=== PATIENT | male | born 1935 | race Caucasian/White ===

== ENCOUNTER 2019-03-10 17:09 | Inpatient (IN) | payer MEDICARE, BC ==
[2019-03-10 18:06] LABS: AADO2 Arterial 47.5 mmHg (7.0-24.0); Allen Test ACCEPTAB; Arterial Base Excess -0.1 mmol/L (-3.0-3); Arterial Blood Gas Oxygen Sat 91.9 mmHG (95.0-100.0); Arterial COHb 0.7 % (0.0-3.0); Arterial HCO3 23.2 mmol/L (22.0-26.0); Arterial MetHb 0.3 % (0.0-1.5); Arterial pCO2 33.9 mmhg (35-45); MODE ROOM AIR; Site Right Radial
[2019-03-10 18:08] LABS: ADD MAN DIFF? NO
[2019-03-10 18:18] LABS: BASOPHIL # 0.1 10^3/ul (0.0-0.1); BASOPHILS % 0.5 % (0.0-2.0); EOSINOPHILS # 0.2 10^3/ul (0.0-0.5); HEMATOCRIT 38.8 % (42.0-52.0); HEMOGLOBIN 12.7 g/dl (14.0-18.0); LYMPHOCYTES # 0.8 10^3/ul (0.8-2.9); LYMPHOCYTES % 7.3 % (15.0-51.0); MEAN CORPUSCULAR HEMOGLOBIN 31.5 pg (29.0-33.0); MEAN CORPUSCULAR HGB CONC 32.7 g/dl (32.0-37.0); MEAN CORPUSCULAR VOLUME 96.3 fl (82.0-101.0); MEAN PLATELET VOLUME 10.7 fl (7.4-10.4); MONOCYTE # 1.1 10^3/ul (0.3-0.9); MONOCYTES % 10.6 % (0.0-11.0); NEUTROPHIL # 8.1 10^3/ul (1.6-7.5); NEUTROPHILS % 78.9 % (39.0-77.0); PLATELET COUNT 235 10^3/UL (140-415); RED BLOOD COUNT 4.03 10^6/ul (4.70-6.10); RED CELL DISTRIBUTION WIDTH 13.4 % (11.5-14.5)
[2019-03-10 18:18] LABS: WHITE BLOOD COUNT 10.3 10^3/ul (4.8-10.8)
[2019-03-10 18:34] LABS: ADD UMIC YES; UR ASCORBIC ACID 40 mg/dL (NEGATIVE); UR BILIRUBIN (Dip) NEGATIVE (NEGATIVE); UR BLOOD (Dip) 1+ mg/dL (NEGATIVE); UR CLARITY SLIGHTLY CLOUDY (CLEAR); UR COLOR AMBER (YELLOW); UR GLUCOSE (Dip) NEGATIVE (NEGATIVE); UR KETONES (Dip) NEGATIVE (NEGATIVE); UR LEUKOCYTE ESTERASE (Dip) NEGATIVE Leu/ul (NEGATIVE); UR MUCUS MANY /HPF (NONE SEEN); UR NITRITE (Dip) NEGATIVE (NEGATIVE); UR RBC 17 /HPF (0-5); UR SPECIFIC GRAVITY (Dip) 1.027 (1.003-1.030); UR TOTAL PROTEIN (Dip) 2+ mg/dl (NEGATIVE); UR UROBILINOGEN (Dip) 2+ mg/dL (NEGATIVE); UR WBC 5 /HPF (0-5)
[2019-03-10 18:37] LABS: INR 0.98; PROTIME 13.1 Sec (11.9-14.9)
[2019-03-10 18:38] LABS: ALANINE AMINOTRANSFERASE 24 IU/L (13-69); ALBUMIN 3.7 g/dl (3.3-4.9); ALBUMIN/GLOBULIN RATIO 0.78; ALKALINE PHOSPHATASE 131 IU/L (42-121); ANION GAP 8 (5-13); ASPARTATE AMINO TRANSFERASE 23 IU/L (15-46); BILIRUBIN,INDIRECT 1.1 mg/dl (0-1.1); BILIRUBIN,TOTAL 1.1 mg/dl (0.2-1.3); BLOOD UREA NITROGEN 19 mg/dl (7-20); CALCIUM 8.6 mg/dl (8.4-10.2); CARBON DIOXIDE 29 mmol/L (21-31); CHLORIDE 104 mmol/L (97-110); CREATININE 0.94 mg/dl (0.61-1.24); GLUCOSE 136 mg/dl (70-220); PARTIAL THROMBOPLASTIN TIME 26.9 Sec (23.0-35.0); POTASSIUM 3.4 mmol/L (3.5-5.1); SODIUM 141 mmol/L (135-144); TOTAL PROTEIN 8.4 g/dl (6.1-8.1)
[2019-03-10 18:49] LABS: TROPONIN-I 0.012 ng/ml (0.000-0.120)
[2019-03-10] MEDS: SOD CHLORIDE 0.9% 1,000 ML IV (19:58)
[2019-03-10] MEDS: ONDANSETRON 4 MG INJ IV (19:59)
[2019-03-10] MEDS: morphine 2 MG INJ IV (19:59)
[2019-03-10] MEDS: POTASSIUM CHLORIDE (SR) 20 MEQ TAB PO (19:59)
[2019-03-10] MEDS: IOHEXOL 100 ML (22:01)
[2019-03-10] MEDS: SOD CHLORIDE 0.9% 100 ML (22:01)
[2019-03-10 22:04] LABS: LACTIC ACID 1.3 mmol/L (0.5-2.0)
[2019-03-10] MEDS ORDERED: NACL 0.9% 3 ML SYG IV (22:30)
[2019-03-10] MEDS ORDERED: ONDANSETRON 4 MG INJ IV (22:30)
[2019-03-10] MEDS ORDERED: POTASSIUM CHLORIDE 50 ML IVPB (23:00)
[2019-03-10] MEDS: 1/2 NS + KCL 20 MEQ 1,000 ML IV (23:02)
[2019-03-10] MEDS: POTASSIUM CHLORIDE 50 ML IVPB (23:03)
[2019-03-11] MEDS: CELECOXIB 200 MG CAP PO ×3 (00:23→20:38)
[2019-03-11] MEDS ORDERED: PANTOPRAZOLE 40 MG INJ IV (06:00)
[2019-03-11 06:40] LABS: ADD MAN DIFF? NO
[2019-03-11 06:49] LABS: BASOPHILS % 0.4 % (0.0-2.0); EOSINOPHILS # 0.2 10^3/ul (0.0-0.5); HEMOGLOBIN 11.3 g/dl (14.0-18.0); LYMPHOCYTES # 0.7 10^3/ul (0.8-2.9); LYMPHOCYTES % 6.7 % (15.0-51.0); MEAN CORPUSCULAR HEMOGLOBIN 31.5 pg (29.0-33.0); MEAN CORPUSCULAR HGB CONC 32.3 g/dl (32.0-37.0); MEAN CORPUSCULAR VOLUME 97.5 fl (82.0-101.0); MONOCYTES % 9.7 % (0.0-11.0); NEUTROPHIL # 8.2 10^3/ul (1.6-7.5); NEUTROPHILS % 80.4 % (39.0-77.0); PLATELET COUNT 208 10^3/UL (140-415); RED BLOOD COUNT 3.59 10^6/ul (4.70-6.10); RED CELL DISTRIBUTION WIDTH 13.5 % (11.5-14.5)
[2019-03-11 06:49] LABS: WHITE BLOOD COUNT 10.2 10^3/ul (4.8-10.8)
[2019-03-11 07:16] LABS: MAGNESIUM 1.8 mg/dl (1.7-2.5)
[2019-03-11 07:16] LABS: PHOSPHORUS 3.1 mg/dl (2.5-4.9)
[2019-03-11] MEDS: SOD CHLORIDE 0.9% 1,000 ML IV (08:30)
[2019-03-11] MEDS ORDERED: FAMOTIDINE 20 MG INJ IV (09:00)
[2019-03-11] MEDS: AMLODIPINE 5 MG TAB PO (09:00)
[2019-03-11] MEDS: ATORVASTATIN 40 MG TAB PO (09:21)
[2019-03-11] MEDS: PANTOPRAZOLE (EC) 40 MG TAB PO (09:25)
[2019-03-11 09:43] LABS: ANION GAP 5 (5-13); BLOOD UREA NITROGEN 15 mg/dl (7-20); C-REACTIVE PROTEIN 6.4 mg/dl (0.0-0.9); CALCIUM 7.6 mg/dl (8.4-10.2); CARBON DIOXIDE 28 mmol/L (21-31); CHLORIDE 108 mmol/L (97-110); CREATININE 0.76 mg/dl (0.61-1.24); GLUCOSE 122 mg/dl (70-220); POTASSIUM 3.8 mmol/L (3.5-5.1); SODIUM 141 mmol/L (135-144)
[2019-03-11 10:52] LABS: ERYTHROCYTE SEDIMENTATION RATE 58 mm/Hr (0-20)
[2019-03-11 12:06] LABS: PROCALCITONIN 0.09 ng/mL (0.00-0.10)
[2019-03-11] MEDS: ACETAMINOPHEN 325 MG TAB PO (14:57)
[2019-03-11] MEDS: FAMOTIDINE 20 MG TAB PO (20:38)
[2019-03-12] MEDS: POTASSIUM CHLORIDE 50 ML IVPB ×3 (00:17→23:00)
[2019-03-12] MEDS: SOD CHLORIDE 0.9% 1,000 ML IV (04:30)
[2019-03-12] MEDS: PANTOPRAZOLE (EC) 40 MG TAB PO (06:24)
[2019-03-12 06:51] LABS: ADD MAN DIFF? NO
[2019-03-12 07:05] LABS: ABNORMAL IP MESSAGE 1; BASOPHIL # 0.1 10^3/ul (0.0-0.1); BASOPHILS % 0.7 % (0.0-2.0); EOSINOPHILS # 0.4 10^3/ul (0.0-0.5); EOSINOPHILS % 5.9 % (0.0-7.0); HEMATOCRIT 34.9 % (42.0-52.0); HEMOGLOBIN 11.2 g/dl (14.0-18.0); LYMPHOCYTES # 0.5 10^3/ul (0.8-2.9); MEAN CORPUSCULAR HEMOGLOBIN 31.4 pg (29.0-33.0); MEAN CORPUSCULAR HGB CONC 32.1 g/dl (32.0-37.0); MEAN CORPUSCULAR VOLUME 97.8 fl (82.0-101.0); MEAN PLATELET VOLUME 11.2 fl (7.4-10.4); MONOCYTE # 0.6 10^3/ul (0.3-0.9); MONOCYTES % 8.6 % (0.0-11.0); NEUTROPHIL # 5.4 10^3/ul (1.6-7.5); NEUTROPHILS % 77.1 % (39.0-77.0); PLATELET COUNT 208 10^3/UL (140-415); POSITIVE DIFF @See below; RED BLOOD COUNT 3.57 10^6/ul (4.70-6.10); RED CELL DISTRIBUTION WIDTH 13.3 % (11.5-14.5)
[2019-03-12 07:10] LABS: HEMOGLOBIN A1C 7.1 % (0-5.9)
[2019-03-12] MEDS: ATORVASTATIN 40 MG TAB PO (08:13)
[2019-03-12] MEDS: AMLODIPINE 5 MG TAB PO (08:14)
[2019-03-12] MEDS: CELECOXIB 200 MG CAP PO ×2 (08:15→20:44)
[2019-03-12] MEDS ORDERED: DEXTROSE 50% 50 ML SYRINGE IV ×2 (08:30)
[2019-03-12] MEDS ORDERED: GLUCOSE GEL 15 GRAM TUBE PO ×2 (08:30)
[2019-03-12] MEDS ORDERED: GLUCAGON 1 MG INJ IM (08:30)
[2019-03-12] MEDS ORDERED: GLUCOSE GEL 15 GRAM TUBE BUCCAL (08:30)
[2019-03-12] MEDS: LINAGLIPTIN 5 MG TABLET PO (09:38)
[2019-03-12 14:19] LABS: ADD UMIC YES; UR ASCORBIC ACID NEGATIVE (NEGATIVE); UR BILIRUBIN (Dip) NEGATIVE (NEGATIVE); UR BLOOD (Dip) 1+ mg/dL (NEGATIVE); UR CLARITY CLEAR (CLEAR); UR COLOR YELLOW (YELLOW); UR GLUCOSE (Dip) NEGATIVE (NEGATIVE); UR KETONES (Dip) TRACE mg/dL (NEGATIVE); UR LEUKOCYTE ESTERASE (Dip) NEGATIVE Leu/ul (NEGATIVE); UR NITRITE (Dip) NEGATIVE (NEGATIVE); UR RBC 8 /HPF (0-5); UR SPECIFIC GRAVITY (Dip) 1.011 (1.003-1.030); UR TOTAL PROTEIN (Dip) NEGATIVE (NEGATIVE); UR UROBILINOGEN (Dip) 1+ mg/dL (NEGATIVE); UR WBC 1 /HPF (0-5)
[2019-03-12 14:36] LABS: CREATININE,URINE RANDOM 45.26 mg/dl (20-370); PROTEIN/CREAT RATIO 0.39 RATIO
[2019-03-12 16:26] LABS: ADD UMIC YES; UR ASCORBIC ACID NEGATIVE (NEGATIVE); UR BACTERIA FEW /HPF (NONE SEEN); UR BILIRUBIN (Dip) NEGATIVE (NEGATIVE); UR BLOOD (Dip) 1+ mg/dL (NEGATIVE); UR CLARITY CLEAR (CLEAR); UR COLOR YELLOW (YELLOW); UR GLUCOSE (Dip) NEGATIVE (NEGATIVE); UR KETONES (Dip) NEGATIVE (NEGATIVE); UR LEUKOCYTE ESTERASE (Dip) NEGATIVE Leu/ul (NEGATIVE); UR MUCUS FEW /HPF (NONE SEEN); UR NITRITE (Dip) NEGATIVE (NEGATIVE); UR RBC 7 /HPF (0-5); UR SPECIFIC GRAVITY (Dip) 1.009 (1.003-1.030); UR TOTAL PROTEIN (Dip) NEGATIVE (NEGATIVE); UR UROBILINOGEN (Dip) 2+ mg/dL (NEGATIVE); UR WBC 1 /HPF (0-5)
[2019-03-12] MEDS: FAMOTIDINE 20 MG TAB PO (20:44)
[2019-03-13] MEDS: PANTOPRAZOLE (EC) 40 MG TAB PO (05:35)
[2019-03-13] MEDS: LINAGLIPTIN 5 MG TABLET PO (09:17)
[2019-03-13] MEDS: ATORVASTATIN 40 MG TAB PO (09:17)
[2019-03-13] MEDS: CELECOXIB 200 MG CAP PO (09:17)
[2019-03-13] MEDS: AMLODIPINE 5 MG TAB PO (09:18)
== END 2019-03-13 12:00 | disposition home health service (06) | DRG 558 ==
LOC: E/R 17:09 → TEL 20:57
DX: M77.8 Other enthesopathies, not elsewhere classified (principal); I10 Essential (primary) hypertension; M31.6 Other giant cell arteritis; E11.8 Type 2 diabetes mellitus with unspecified complications; R51 Headache; R31.9 Hematuria, unspecified; E78.5 Hyperlipidemia, unspecified; R91.1 Solitary pulmonary nodule; Z85.46 Personal history of malignant neoplasm of prostate
CPT/HCPCS: 36415; 36600; 70450; 70486; 70546; 70551; 71045; 71275; 76775; 80048; 80053; 81001; 81003; 82570; 82803; 83036; 83605; 83735; 84100; 84145; 84484; 85025; 85610; 85651; 85730; 86140; 86325; 87040-91; 87086; 87880; 92526; 92610; 93005; 93306; 93880; 96374; 96375; 97161; 99285-25